=== PATIENT | female | born 1970 | race Two or more races ===

== ENCOUNTER 2023-11-19 04:40 | Day surgery (SDC) | payer BC ==
[2023-11-18 10:16] VITALS: BMI 29.0
[2023-11-19 12:32] VITALS: TEMP 98
[2023-11-19 13:00] VITALS: BP 113/65; PULSE 65; RESP 16
== END 2023-11-19 13:05 | disposition home or self-care (01) ==
LOC: JASU-ENDO 04:40
PROVIDERS: ATTEND Internal Medicine Gastroenterology
PROC: 0DJD8ZZ Inspection of Lower Intestinal Tract, Via Natural or Artificial Opening Endoscopic (ICD-10-PCS; principal; 2023-11-19 11:00)
DX: Z12.11 Encounter for screening for malignant neoplasm of colon (principal)
CPT/HCPCS: 81025